=== PATIENT | female | born 1970 | race Caucasian/White ===

== ENCOUNTER → 2021-04-21 06:49 | Outpatient (CLI) | payer BC, OTHER, SELFPAY ==
[2021-04-21 19:11] LABS: SARS-CoV-2 RNA PCR Negative
== END ==
PROVIDERS: PCP Nurse Practitioner Family; Visit Provider Nurse Practitioner Family
DX: R05 Cough (principal); Z20.822 Contact with and (suspected) exposure to COVID-19
CPT/HCPCS: C9803; U0003; U0005

== ENCOUNTER → 2021-08-29 01:56 | Outpatient (CLI) | payer BC, OTHER, SELFPAY ==
[2021-08-29 17:55] LABS: SARS-CoV-2 RNA PCR Negative
== END ==
PROVIDERS: PCP Nurse Practitioner Family; Visit Provider Nurse Practitioner Family
DX: R05.9 Cough, unspecified (principal); Z20.822 Contact with and (suspected) exposure to COVID-19
CPT/HCPCS: C9803; U0003; U0005

== ENCOUNTER 2021-09-28 11:50 | Emergency (ER) | payer BC, OTHER, SELFPAY ==
--- NOTE | ~2021-09-28 | XR_ITS ---
EXAMINATION: XR chest 1V portable 09/28/2021 12:43 INDICATION: Cough and shortness of breath PROCEDURE: AP portable chest COMPARISON: No prior studies for comparison. FINDINGS: The lungs are clear. The cardiomediastinal silhouette is within normal limits. There are no pleural effusions. There is no pneumothorax suspected. IMPRESSION: 1: NO ACUTE CARDIOPULMONARY DISEASE. Reviewed, dictated and finalized at location A. [facility] [employer]
[2021-09-28 12:00] VITALS: BP 115/66; PULSE 78; RESP 18; TEMP 36.8; O2SAT 97
--- NOTE | 2021-09-28 12:21 | ED.GENADULT ---
HPI - General Adult General Chief complaint: Upper Respiratory Infection Stated complaint: covid Source: patient and family Mode of arrival: ambulatory History of Present Illness HPI narrative: Hanane is a 51F with a PMH of tobacco abuse that presented to clinic 10 days after a positive home covid test. She has a headache, cough, fatigue, SOB, body aches and cannot sleep. She denies CP, syncope and vomiting. Related Data Home Medications Medication Instructions Recorded Confirmed celecoxib 200 mg PO BID 09/28/21 09/28/21 cetirizine 10 mg PO DAILY 09/28/21 09/28/21 estradiol 1 mg PO DAILY 09/28/21 09/28/21 loratadine 10 mg PO DAILY 09/28/21 09/28/21 pregabalin 150 mg PO BID 09/28/21 09/28/21 Allergies Allergy/AdvReac Type Severity Reaction Status Date / Time No Known Allergies Allergy Verified 09/28/21 12:30 Review of Systems Constitutional: Constitutional: Reports fatigue Eyes: Eyes: Reports no additional eye complaints ENT: Reports system reviewed and no additional complaints, except as documented Cardiovascular: Cardiovascular: Reports no additional cardiovascular complaints Respiratory: Respiratory: Reports as per HPI Gastrointestinal: Gastrointestinal: Reports no additional gastrointestinal complaints Genitourinary: Genitourinary: Reports no additional female genitourinary complaints Musculoskeletal: Musculoskeletal: Reports no additional musculoskeletal complaints Integumentary/Breasts: Skin/Breast: Reports system reviewed and no additional complaints, except as docu Neurologic: Reports system reviewed and no additional complaints, except as documented Psychiatric: Psychiatric: Reports no additional psychiatric complaints Endocrine: Endocrine: Reports no additional endocrine complaints Hematologic/Lymphatic: Hematologic/Lymphatic: Reports no additional hematologic/lymphatic complaints Allergic/Immunologic: Allergic/Immunologic: Reports no additional allergic/immunologic complaints Exam Const: General: no acute distress and alert Orientation/consciousness: patient oriented x3 HENMT: Head: normal to inspection Other: normocephalic, atraumatic Eyes: Conjunctivae: conjunctivae normal Pupils: Equal, round and reactive pupils present Neck: Neck: normal visual inspection Chest: Chest palpation & inspection: normal inspection of the chest Resp: Effort & Inspection: normal respiratory effort, not labored and not tachypneic Auscultation: clear to auscultation bilaterally Cardio: Rate: regular rate Rhythm: regular rhythm GI: GI Palp: Yes Soft to palpation, No Tenderness to palpation present (GI) and No Guarding due to palpation present (GI) Skin: General skin exam: normal color Rashes: no rashes Neuro: General: patient oriented x3, moves all extremities, no focal motor deficits and CN's II-XI intact bilaterally Extrem: General: normal to inspection Psych: Appearance: grossly normal Mental Status: mental status grossly normal Course Course Emergency Course: Ordered labs and CXR. Labs largely unremarkable. EXAMINATION: XR chest 1V portable 09/28/2021 12:43 INDICATION: Cough and shortness of breath PROCEDURE: AP portable chest COMPARISON: No prior studies for comparison. FINDINGS: The lungs are clear. The cardiomediastinal silhouette is within normal limits. There are no pleural effusions. There is no pneumothorax suspected. IMPRESSION: 1: NO ACUTE CARDIOPULMONARY DISEASE. Vital Signs Vital signs: Vital Signs Temperature 98.3 F 09/28/21 12:00 Pulse Rate 78 09/28/21 12:00 Respiratory Rate 18 09/28/21 12:00 Blood Pressure 115/66 09/28/21 12:00 Pulse Oximetry 97 09/28/21 12:00 Temperature 98.3 F 09/28/21 12:00 Pulse Rate 78 09/28/21 12:00 Respiratory Rate 18 09/28/21 12:00 Blood Pressure 115/66 09/28/21 12:00 Pulse Oximetry 97 09/28/21 12:00 Medical Decision Making Vital Signs Vital Signs: Vital Signs Temperature 98.3
[2021-09-28 12:33] LABS: Basophils Absolute Auto 0.02 K/mm3 (0.00-0.10); Basophils Percent Auto 0.2 % (0.0-1.0); Eosinophils Absolute Auto 0.15 K/mm3 (0.02-0.50); Eosinophils Percent Auto 1.2 % (1.0-6.0); Hematocrit 40.1 % (35.0-49.0); Hemoglobin 13.3 g/dL (12.0-15.0); Immature Granulocyte Absolute 0.21 K/mm3 (0.00-0.00); Immature Granulocyte Percent A 1.7 % (0.0-0.0); Lymphocytes Absolute Auto 5.79 K/mm3 (1.10-4.50); Lymphocytes Percent Auto 47.6 % (18.0-42.0); Mean Corpuscular HGB Conc 33.2 g/dL (32.0-36.0); Mean Corpuscular Hemoglobin 29.9 pg (27.0-31.0); Mean Corpuscular Volume 90.1 fL (78.0-102.0); Mean Platelet Volume 9.3 fl (9.2-11.8); Monocytes Absolute Auto 0.65 K/mm3 (0.10-0.90); Monocytes Percent Auto 5.3 % (2.0-11.0); Neutrophils Absolute Auto 5.3 K/mm3 (1.7-7.2); Platelet Count Result 274 K/mm3 (150-420); Red Blood Count 4.45 M/mm3 (4.20-5.40); Red Cell Distribution Width 13.7 % (11.6-14.4); White Blood Count 12.2 K/mm3 (4.8-10.8)
[2021-09-28 12:42] LABS: Anion Gap 11 mmol/L (8-16); Blood Urea Nitrogen 20 mg/dL (7-18); Calcium 8.4 mg/dL (8.5-10.1); Carbon Dioxide 26 mmol/L (21-32); Chloride 100 mmol/L (98-108); Estimated CRCL calculation 69 ml/min; Estimated Glomerular Filt Rate > 60; Glucose 156 mg/dL (70-99); Osmolality Calculated 289 mOsm/kg (285-295); Potassium 3.4 mmol/L (3.5-5.1); Sodium 137 mmol/L (136-145)
[2021-09-28 13:09] LABS: SARS-CoV-2 RNA PCR Positive (Negative)
[2021-09-28] MEDS: KETOROLAC 15 MG/ML VIAL (*BKC) IM (13:16)
[2021-09-28 13:17] VITALS: BP 115/66; PULSE 84; RESP 20; TEMP 36.6; O2SAT 98
--- NOTE | 2021-09-28 13:22 | PC.NURSE ---
pt injection given, pt declined observation period after injection. explained risks and benefits.
== END 2021-09-28 13:23 | disposition home or self-care (01) ==
PROVIDERS: Emergency Provider Family Medicine; PCP Nurse Practitioner Family
DX: U07.1 COVID-19 (principal)
CPT/HCPCS: 36415; 71045; 80048; 85025; 96372; 99283; C9803; J1885; U0003; U0005

== ENCOUNTER 2022-02-01 01:11 | Day surgery (SDC) | payer BC, OTHER, SELFPAY ==
[2022-01-19 14:24] VITALS: BMI 32.0
[2022-02-01 12:09] VITALS: BP 90/63; PULSE 61; RESP 18; TEMP 36.4; O2SAT 97
--- NOTE | 2022-02-01 12:19 | WPDGICN ---
Assessment and Plan Assessment and plan (1) Abdominal pain: Code(s): R10.9 - Unspecified abdominal pain Status: Acute Assessment and Plan: Patient reports rather diffuse abdominal pain. It is poorly described. Sometimes being burning but has other features to it sometimes upper sometimes lower sometimes in her chest sometimes not. She states it may get worse after eating. States that improves but does not go way on limiting certain foods that include a wide category of meats and other foods. I suspect this may represent irritable bowel syndrome. Plan is for EGD as requested to exclude gastritis or ulcer disease. A trial of high-fiber diet. May be beneficial. In antacids may be of benefit if there is a burning nature to her pain. Further recommendations will be given after endoscopy. GI Consult Note Consult date/time: 02/01/22 12:19 HPI: Hanane Dominguez is a 51 year old female Seen in referral for gastritis . No old records accompany her to support this diagnosis. On questioning patient patient reports abdominal discomfort for at least 10 years. She states pains are diffuse across the abdomen and sometimes will be burning sometimes will have other features to it. Her bowel habits apparently are fairly regular. She denies any bleeding. She reports in 2017 had a colonoscopy an EGD with no specific findings. Patient previously evaluated in [place]. She does report at 1 point was told she had ulcers some years ago. She reports being told she had irritable bowel syndrome at 1 point. She currently is on no specific therapy however. She has not been instructed to modify diet. She infrequently has taken antacids but basically has stopped medications because of no improvement. Patient is for referred today for EGD. Review of Systems Review of Systems: All systems reviewed & are unremarkable except as noted in HPI and below PMFSH Social History Social History Smoking packs per day: 1 Smoking cigarettes per day: 20.0 Years smoked: 40 Smoking pack-years: 40.00 Smoking status: Current every day smoker Tobacco type: cigarettes Alcohol intake: never Substance use: current Substance use type: marijuana Other substance usage details: daily use Living arrangements: with family Additional living arrangements comments: spouse and adult son Spiritual care concerns: No Meds Home Medications and Allergies Home Medications Medication Instructions Recorded Confirmed Type celecoxib 200 mg PO BID 09/28/21 01/19/22 History estradiol 1 mg PO DAILY 09/28/21 01/19/22 History loratadine 10 mg PO DAILY 09/28/21 01/19/22 History pregabalin 150 mg PO BID 09/28/21 01/19/22 History albuterol sulfate [Ventolin HFA] 1 puff INHALATION BID PRN 01/19/22 01/19/22 History budesonide-formoterol [Symbicort] 1 puff INHALATION DAILY 01/19/22 01/19/22 History pantoprazole 40 mg PO DAILY 01/19/22 01/19/22 History Allergies Allergy/AdvReac Type Severity Reaction Status Date / Time No Known Allergies Allergy Verified 02/01/22 12:08 Vital Signs Vital Signs - 24 hr 02/01/22 12:09 Temperature 97.6 F Pulse Rate 61 Respiratory Rate 18 Blood Pressure 90/63 L Pulse Oximetry 97 Exam Narrative: Physical exam reveals patient be alert. Vital signs stable. HEENT exam is unremarkable. Patient is anicteric. Lungs are clear. Heart without murmur. Abdomen Is obese. bowel sounds are present soft nontender with no organomegaly. No localized tenderness. No masses.
--- NOTE | 2022-02-01 12:22 | WPDANESEPPF ---
Anes - Initial Pre Proc Eval Procedure: Operation Date: 02/01/22 13:30 Proposed Procedures p Esophagogastroduodenoscopy - Luis Ramos MD Date/Time: 02/01/22 12:22 Surgeon: Luis Ramos MD Pre Op Diagnosis: gastritis Patient Data Age: 51 Gender: F Height: 1.6 m Weight: 80.9 kg Last Vital Signs Temp 36.4 C 02/01/22 12:09 Pulse 61 02/01/22 12:09 Resp 18 02/01/22 12:09 BP 90/63 L 02/01/22 12:09 Pulse Ox 97 02/01/22 12:09 Allergies Allergy/AdvReac Type Severity Reaction Status Date / Time No Known Allergies Allergy Verified 02/01/22 12:08 Home Medications Medication Instructions Recorded Confirmed Type celecoxib 200 mg PO BID 09/28/21 01/19/22 History estradiol 1 mg PO DAILY 09/28/21 01/19/22 History loratadine 10 mg PO DAILY 09/28/21 01/19/22 History pregabalin 150 mg PO BID 09/28/21 01/19/22 History albuterol sulfate [Ventolin HFA] 1 puff INHALATION BID PRN 01/19/22 01/19/22 History budesonide-formoterol [Symbicort] 1 puff INHALATION DAILY 01/19/22 01/19/22 History pantoprazole 40 mg PO DAILY 01/19/22 01/19/22 History Patient hx anesthesia problems: none Family hx anesthesia problems: none Results Review: All pre-operative results and documents have been reviewed as part of the pre-operative evaluation. FOR[facility], [facility] Past Medical History Medical History (Updated 02/01/22 @ 13:00 by Job Lopez MD) Rheumatoid arthritis Social History Social History Smoking packs per day: 1 Smoking cigarettes per day: 20.0 Years smoked: 40 Smoking pack-years: 40.00 Smoking status: Current every day smoker Tobacco type: cigarettes Alcohol intake: never Substance use: current Substance use type: marijuana Other substance usage details: daily use Living arrangements: with family Additional living arrangements comments: spouse and adult son Spiritual care concerns: No Anes - Eval Final PreProcedure Day of Procedure 02/01/22 12:22 Patient weight: obese Heart: regular rate and rhythm Lungs: clear to auscultation and normal air movement Airway: Mallampati scale class II Neurological: alert and oriented Last oral intake: >/= 8 hours ASA classification: III Emergent: no Anesthetic plan: proceed Anesthesia type and monitoring: general GIVS Results Review: All pre-operative results and documents have been reviewed as part of the pre-operative evaluation. Informed Consent: The patient's anesthetic plan and its attendant risks and benefits were discussed with the patient/family/POA. Questions were solicited and answers provided to the satisfaction of the patient/family/POA.
[2022-02-01] MEDS: LACTATED RINGERS 1,000 ML 150 ML IV CONT (12:38)
[2022-02-01] MEDS: BENZOCAINE (*SP) 60 ML SPRAY CAN (HURRICAINE) 1 SPRAY MUCOUS MEM (13:45)
[2022-02-01 13:54] VITALS: BP 116/56; PULSE 64; RESP 20; O2SAT 97
[2022-02-01 14:04] VITALS: BP 110/72; PULSE 60; RESP 17; O2SAT 98
[2022-02-01 14:14] VITALS: BP 110/72; PULSE 57; RESP 20; O2SAT 99
== END 2022-02-01 14:21 | disposition home or self-care (01) ==
PROVIDERS: Visit Provider Internal Medicine Gastroenterology
PROC: 0DJ08ZZ Inspection of Upper Intestinal Tract, Via Natural or Artificial Opening Endoscopic (ICD-10-PCS; CPT 43235; principal; 2022-02-01 13:30)
DX: R10.84 Generalized abdominal pain (principal); M06.9 Rheumatoid arthritis, unspecified; Z79.51 Long term (current) use of inhaled steroids; F17.210 Nicotine dependence, cigarettes, uncomplicated; F12.90 Cannabis use, unspecified, uncomplicated; E66.9 Obesity, unspecified; Z68.31 Body mass index [BMI] 31.0-31.9, adult
CPT/HCPCS: 43239; 87081; J2704; J7120